=== PATIENT | female | born 1965 | race Caucasian/White ===

== ENCOUNTER 2023-01-23 08:23 | Emergency (ER) | payer BC ==
[~2023-01-23] VITALS: Ht 175 cm; Wt 84.0 kg
--- NOTE | 2023-01-23 08:44 | ED Abdominal Pain ---
General Chief Complaint: Abdominal/GI Problems Stated Complaint: ABD PAIN Source of Information: Patient Exam Limitations: No Limitations History of Present Illness Date Seen by Provider: Jan 23, 2023 Time Seen by Provider: 08:30 Initial Comments Patient is a 57-year-old female who presents to the emergency department with a chief complaint of periumbilical pain. She states that she saw Dr. Hi on Friday of this week, 4 days ago. Her hernia was "out" and he pushed it back in. She states ever since he did that she has had pain. She had 1 episode of nausea and vomiting this morning. Last time she has had anything to eat was yesterday afternoon. She was trying to drink coffee this morning but her abdomen hurt too bad. She states she also has a hernia in her right upper quadrant that they are monitoring. No abnormal bowel movements/diarrhea/black or bloody stools. She rates her pain at a "8" currently. She endorses decreased urinary frequency and decreased amounts of urination. She is a smoker. Her blood pressure is quite high diastolic 117. She is not on medications for blood pressure. Movement makes the pain worse as well as palpation. Timing/Duration: 3-4 Days Severity/Quality: Moderate ("8") Location: RUQ, Periumbilical Radiation: No Radiation Activities at Onset: None Modifying Factors: Worsens With Movement Associated Symptoms: Nausea/Vomiting (x1 this morning) Allergies and Home Medications Allergies Coded Allergies: Sulfa (Sulfonamide Antibiotics) (Verified Allergy, Unknown, 01/23/23) terbinafine (Verified Allergy, Unknown, 01/23/23) Patient Home Medication List Home Medication List Reviewed: Yes Review of Systems Review of Systems Constitutional: see HPI Respiratory: No Symptoms Reported Cardiovascular: No Symptoms Reported Gastrointestinal: Abdominal Pain, Nausea, Vomiting Genitourinary: Other (decreased amounts. has urge but isn't going as much) Musculoskeletal: no symptoms reported Skin: no symptoms reported All Other Systems Reviewed Negative Unless Noted: Yes Past Igbokrm-Eohfzb-Ldvrab Hx Patient Social History Tobacco Use?: Yes Tobacco type used: Cigarettes Smoking Status: Current Everyday Smoker Physical Exam Vital Signs Vital Signs - First Documented 01/23/23 08:31 Temp 36.2 Pulse 84 B/P (MAP) 157/114 (128) Pulse Ox 99 O2 Delivery Room Air Capillary Refill : Height/Weight/BMI Height: '" Weight: lbs. oz. kg; BMI Method: General Appearance: WD/WN, no apparent distress HEENT: PERRL/EOMI Respiratory: lungs clear, normal breath sounds, no respiratory distress, no accessory muscle use Cardiovascular: regular rate, rhythm Gastrointestinal: soft, other (umbilical hernia, soft. + BS; Not distended) Extremities: normal range of motion, non-tender, normal inspection, no pedal edema, normal capillary refill Skin: normal color, warm/dry Progress/Results/Core Measures Results/Orders Lab Results Laboratory Tests Test 01/23/23 08:35 Range/Units White Blood Count 10.9 4.3-11.0 10^3/uL Red Blood Count 4.44 3.80-5.11 10^6/uL Hemoglobin 15.1 11.5-16.0 g/dL Hematocrit 45 35-52 % Mean Corpuscular Volume 100 H 80-99 fL Mean Corpuscular Hemoglobin 34 25-34 pg Mean Corpuscular Hemoglobin Concent 34 32-36 g/dL Red Cell Distribution Width 11.9 10.0-14.5 % Platelet Count 253 130-400 10^3/uL Mean Platelet Volume 9.7 9.0-12.2 fL Immature Granulocyte % (Auto) 0 % Neutrophils (%) (Auto) 74 42-75 % Lymphocytes (%) (Auto) 20 12-44 % Monocytes (%) (Auto) 4 0-12 % Eosinophils (%) (Auto) 1 0-10 % Basophils (%) (Auto) 1 0-10 % Neutrophils # (Auto) 8.0 H 1.8-7.8 10^3/uL Lymphocytes # (Auto) 2.2 1.0-4.0 10^3/uL Monocytes # (Auto) 0.5 0.0-1.0 10^3/uL Eosinophils # (Auto) 0.1 0.0-0.3 10^3/uL Basophils # (Auto) 0.1 0.0-0.1 10^3/uL Immature Granulocyte # (Auto) 0.0 0.0-0.1 10^3/uL Sodium Level 141 135-145 MMOL/L Potassium Level 4.3 3.6-5.0 MMOL/L Chloride Level 106 98-107 MMOL/L Carbon Dioxide Level 21 21-32 MMOL/L Anion Gap 14 5-14 MMOL/L Blood Urea Nitrogen 9 7-18 MG/DL Creatinine 0.71 0.60-1.30 MG/DL Estimat Glomerular Filtration Rate 100 BUN/Creatinine Ratio 13 Glucose Level 97 70-105 MG/DL Calcium Level 9.1 8.5-10.1 MG/DL Corrected Calcium 8.8 8.5-10.1 MG/DL Total Bilirubin 0.4 0.1-1.0 MG/DL Aspartate Amino Transf (AST/SGOT) 17 5-34 U/L Alanine Aminotransferase (ALT/SGPT) 16 0-55 U/L Alkaline Phosphatase 45 40-136 U/L C-Reactive Protein High Sensitivity 0.23 0.00-0.50 MG/DL Total Protein 7.3 6.4-8.2 GM/DL Albumin 4.4 3.2-4.5 GM/DL My Orders Orders - JASEN CAMARENA MD Ed Iv/Invasive Line Start (01/23/23 08:49) Cbc With Automated Diff (01/23/23 08:49) Comprehensive Metabolic Panel (01/23/23 08:49) Hs C Reactive Protein (01/23/23 08:49) Fentanyl Inj (Sublimaze Injection) (01/23/23 09:00) Ketorolac Injection (Toradol Injection) (01/23/23 09:30) Medications Given in ED Current Medications Medications Dose Ordered Sig/Ashley Route Start Time Stop Time Status Last Admin Dose Admin Fentanyl Citrate 25 mcg ONCE ONCE IVP 01/23/23 09:00 01/23/23 09:01 DC 01/23/23 09:32 25 MCG Ketorolac Tromethamine 15 mg ONCE ONCE IVP 01/23/23 09:30 01/23/23 09:31 DC 01/23/23 09:32 15 MG Vital Signs/I&O 01/23/23 08:31 Temp 36.2 Pulse 84 B/P (MAP) 157/114 (128) Pulse Ox 99 O2 Delivery Room Air Progress Progress Note : Time: 09:38 Progress Note Patient seen and evaluated by me. Evaluation today includes physical exam, CBC, Chem-12, CRP. Pertinent physical exam findings well-developed well-nourished female in no acute distress. Abdominal exam reveals normal bowel sounds, soft abdomen, no involuntary guarding or rebound tenderness. Not distended. Umbilical hernia site is soft without any signs of incarceration or strangulation. Differential diagnosis based on history and physical, umbilical hernia with inflammatory change, enteritis, partial small bowel obstruction. Labs reviewed and interpreted by me. CBC is normal, Chem-12 is normal, CRP is normal. Patient clinically does not have evidence for strangulation or incarceration of her hernia. She has not vomited in the department and only vomited once this morning. She has clear follow-up with Dr. Hi. No real indications that she is developing a bowel obstruction. She does not have a fever. Labs are all normal which supports decision to send her home. I have given her both written and verbal return precautions. She verbalized understanding. All questions are sought and answered. Patient is stable for discharge. Departure Impression Primary Impression: Abdominal pain Qualified Codes: R10.9 - Unspecified abdominal pain Disposition: 01 HOME, SELF-CARE Condition: Improved Departure-Patient Inst. Decision time for Depature: 09:37 Referrals: DONNY HI,LOCAL PHYSICIAN (PCP) Primary Care Physician Patient Instructions: Umbilical Hernia, Adult Add. Discharge Instructions: Monitor the hernia for signs of getting stuck such as increased pain, vomiting, redness. You can take [id number] ibuprofen or Tylenol as needed for pain. Please keep your follow-up appointment with Dr. Hi in 2 weeks. Return to the emergency department for any new, concerning or emergent complaints. Copy Copies To 1: DONNY HI KATHRYN M MD Jan 23, 2023 08:44
[2023-01-23 08:59] LABS: ALBUMIN 4.4 GM/DL (3.2-4.5); POTASSIUM 4.3 MMOL/L (3.6-5.0)
[2023-01-23] MEDS ORDERED: fentaNYL INJ 100 MCG/2 ML AMP IVP ONE (09:00)
[2023-01-23 09:01] LABS: CALCIUM 9.1 MG/DL (8.5-10.1)
[2023-01-23 09:02] LABS: BASOPHILS # (AUTO) 0.1 10^3/uL (0.0-0.1); BASOPHILS % (AUTO) 1 % (0-10); EOSINOPHILS # (AUTO) 0.1 10^3/uL (0.0-0.3); EOSINOPHILS % (AUTO) 1 % (0-10); HEMATOCRIT 45 % (35-52); HEMOGLOBIN 15.1 g/dL (11.5-16.0); LYMPHOCYTES # (AUTO) 2.2 10^3/uL (1.0-4.0); LYMPHOCYTES % (AUTO) 20 % (12-44); MEAN CORPUSCULAR HEMOGLOBIN 34 pg (25-34); MEAN CORPUSCULAR HGB CONC 34 g/dL (32-36); MEAN CORPUSCULAR VOLUME 100 fL (80-99); MEAN PLATELET VOLUME 9.7 fL (9.0-12.2); MONOCYTES # (AUTO) 0.5 10^3/uL (0.0-1.0); MONOCYTES % (AUTO) 4 % (0-12); NEUTROPHILS % (AUTO) 74 % (42-75); PLATELET COUNT 253 10^3/uL (130-400); TOTAL PROTEIN 7.3 GM/DL (6.4-8.2); WHITE BLOOD COUNT 10.9 10^3/uL (4.3-11.0)
[2023-01-23 09:04] LABS: BILIRUBIN,TOTAL 0.4 MG/DL (0.1-1.0)
[2023-01-23 09:06] LABS: CREATININE SERUM 0.71 MG/DL (0.60-1.30)
[2023-01-23] MEDS ORDERED: KETOROLAC 15 MG/ML VIAL IVP ONE (09:30)
[2023-01-23 09:44] VITALS: BP 129/66
== END 2023-01-23 10:22 | disposition home or self-care (01) ==
LOC: EDUNIT# 08:23 → ER 08:26
DX: K42.9 Umbilical hernia without obstruction or gangrene (principal); F17.210 Nicotine dependence, cigarettes, uncomplicated
CPT/HCPCS: 36415; 80053; 85025; 86141

== ENCOUNTER 2023-01-30 05:31 | Outpatient (CLI) | payer BC ==
[~2023-01-30] VITALS: Ht 175.3 cm; Wt 85.3 kg
[2023-01-30] MEDS ORDERED: ONDA4TAB11 SL (14:04)
[2023-01-30] MEDS ORDERED: RALO60TA12 PO (14:04)
[2023-01-30] MEDS ORDERED: NF-PREM2.5 PO (14:04)
[2023-01-30] MEDS ORDERED: TUME1CAP PO (14:04)
[2023-01-30] MEDS ORDERED: PANT40TA52 PO (14:04)
== END 2023-01-30 14:41 | disposition home or self-care (01) ==
LOC: PREOP 05:31
PROVIDERS: ATTEND Surgery
DX: Z01.818 Encounter for other preprocedural examination (principal)

== ENCOUNTER 2023-02-06 10:27 | Day surgery (SDC) | payer BC ==
[~2023-02-06] VITALS: Ht 175.3 cm; Wt 85.3 kg
[2023-02-06] VITALS (15 sets, daily range): BP systolic 107–139; BP diastolic 60–82
[~2023-02-06 10:27] MED LIST: NF-PREM2.5 PO; ONDA4TAB11 SL; PANT40TA52 PO; RALO60TA12 PO; TUME1CAP PO
[2023-02-06] MEDS ORDERED: ceFAZolin INJECTION 2,000 MG in NS (IVPB) 50 ML IV ONE ×2 (10:45→11:15)
[2023-02-06] MEDS: LACTATED RINGERS 1,000 ML IV PRN ×2 (11:30→13:15)
[2023-02-06] MEDS ORDERED: MIDAZOLAM 2 MG/2 ML (VERSED) VIAL ONE (11:41)
[2023-02-06] MEDS ORDERED: fentaNYL INJ 100 MCG/2 ML AMP ONE (11:41)
[2023-02-06] MEDS ORDERED: LIDOCAINE PF 2% 5 ML (XYLOCAINE) VIAL ONE (11:41)
[2023-02-06] MEDS ORDERED: ROCURONIUM 50 MG/5 ML (ZEMURON) VIAL IV ONE (11:41)
[2023-02-06] MEDS ORDERED: proPOfol 200 MG/20 ML (DIPRIVAN) VIAL IV ONE (11:41)
--- NOTE | 2023-02-06 11:50 | Progress Note-Pre Operative ---
Pre-Operative Progress Note Date H&P Reviewed: Feb 06, 2023 Time H&P Reviewed: 11:50 History & Physical: H&P Reviewed, Patient Examed, No changes noted Pre-Operative Diagnosis: incisional hernia DONNY BRITO DO Feb 06, 2023 11:50
[2023-02-06] MEDS ORDERED: BUP/EPI 0.5% 1:200,000 (SENSORCAINE) 30 ML VIAL ONE (12:12)
[2023-02-06] MEDS ORDERED: SEVOFLURANE (ULTANE) 15 ML INHAL SOLN ONE (13:54)
[2023-02-06] MEDS ORDERED: KETOROLAC 30 MG/ML VIAL ONE (13:55)
[2023-02-06] MEDS ORDERED: NEOSTIGMINE (BLOXIVERZ ) 1 MG/1ML 10 ML VIAL ONE (13:58)
[2023-02-06] MEDS ORDERED: GLYCOPYRROLATE 0.2 MG/ML (ROBINUL) 2 ML VIAL ONE (13:58)
[2023-02-06] MEDS ORDERED: DOCU-143 PO (14:00)
[2023-02-06] MEDS ORDERED: ACHD5005 PO (14:00)
[2023-02-06] MEDS ORDERED: morphine INJ 10 MG/ML 1ML (SYR OR VIAL) ONE (14:00)
--- NOTE | 2023-02-06 14:02 | Discharge Inst-Simple/Standard ---
Discharge Inst-Standard Discharge Medications New, Converted or Re-Newed RX: Transmitted to Pharmacy Patient Instructions/Follow Up Plan of Care/Instructions/FU: 2 weeks Sussy Activity as Tolerated: No Discharge Diet: Regular Diet Other Inst to Patient Follow up Appt: Make appointment for 2 week. Instructions: No lifting greater than 10 pounds. No strenuous activity. May shower in 24 hours, no tub bath or soaking. Use incentive spirometer at home as directed. No Smoking Skin/Wound Care: You have special glue over your incision that will fall off on it's own. Remove the umbilical ball/bandage in 48 hours. Leave the glue in the umbilicus. Symptoms to Report: Appetite Changes, Extremity Discoloration, Numbness/Tingling, Swelling Increased, Bleeding Excessive, Eyesight Changes, Pain Increased, Urine Color Change, Constipation(Persistent), Fever over 101 degree F, Pain/Pressure in chest, Urinating Difficulty, Cough Up/Vomit Blood, Heart Beat Irreg/Pounding, Pain/Pressure in jaw, Vaginal Bleeding Increase, Cramps in feet or legs, Lightheadedness, Pain/Pressure in shoulder, Diarrhea(Persistent), Memory Changes Suddenly, Questions/Concerns, Weight gain consecutive days, Dizziness/Fainting, Nausea/Vomiting, Shortness of Breath, Weight gain over 2 pounds If questions or concerns contact your physician Or seek help at emergency department. DONNY BRITO DO Feb 06, 2023 14:02
--- NOTE | 2023-02-06 14:04 | Progress Note-Post Operative ---
Post-Operative Progess Note Surgeon (s)/Salvager (s) Surgeon DONNY BRITO DO Salvager: Dr. Hendricks to assist in retraction dissection and closure. Pre-Operative Diagnosis incisional hernia Post-Operative Diagnosis incarcerated incisional and umbilical hernia (3 defects). Procedure & Operative Findings Date of Procedure 02/06/23 Procedure Performed/Findings robotic incarcerated incisional hernia repair greater than 3 cm and less than 10 cm using 4x6 inch ventralight echo mesh. Anesthesia Type general Estimated Blood Loss Estimated blood loss (mL): minimal Specimens/Packing Specimens Removed na DONNY BRITO DO Feb 06, 2023 14:04
[2023-02-06] MEDS ORDERED: ONDANSETRON 4 MG/2 ML (SDV) Z0FRAN IVP PRN (14:15)
[2023-02-06] MEDS ORDERED: HYDROmorphone 2 MG/ML VIAL (DILAUDID) IV ONE (14:15)
[2023-02-06] MEDS ORDERED: morphine INJ 10 MG/ML 1ML (SYR OR VIAL) IVP ONE (14:15)
--- NOTE | 2023-02-06 14:15 | Anesthesia-General Post-Op ---
General Patient Condition Mental Status/LOC: Same as Preop Cardiovascular: Satisfactory Nausea/Vomiting: Absent Respiratory: Satisfactory Pain: Controlled Complications: Absent Post Op Complications Complications None Follow Up Care/Instructions Patient Instructions None needed. Anesthesia/Patient Condition Patient Condition Patient is doing well, no complaints, stable vital signs, no apparent adverse anesthesia problems. No complications reported per nursing. JARRETT LEIJA CRNA Feb 06, 2023 14:15
[2023-02-06] MEDS ORDERED: ONDANSETRON 4 MG/2 ML (SDV) Z0FRAN ONE (15:15)
[2023-02-06] MEDS ORDERED: ONDANSETRON 4 MG/2 ML (SDV) Z0FRAN IVP ONE (15:30)
--- NOTE | 2023-02-07 17:17 | OPERATIVE REPORT ---
DATE OF SERVICE: 02/06/2023 PREOPERATIVE DIAGNOSIS: Incisional hernia. POSTOPERATIVE DIAGNOSIS: Incarcerated incisional and umbilical hernia with 3 defects. PROCEDURE: Robotic incarcerated incisional hernia repair with greater than 3 cm and less than 10 cm using 4 x 6 inch Ventralight Echo mesh. SURGEON: Shmuel Hi DO AMMUNITION OFFICER: Yaron Hendricks DO, assisted in retraction, dissection, and closure. ANESTHESIA: General. ESTIMATED BLOOD LOSS: Minimal. COMPLICATIONS: None. INDICATIONS: The patient is a 57-year-old female with an incisional hernia, which causes significant discomfort. She wished to have it repaired. She understands risks and benefits of procedure and wished to proceed. Consent was signed in chart. DESCRIPTION OF PROCEDURE: The patient was taken to the operating suite. She was prepped and draped in sterile fashion. Timeout was performed. Local anesthetic was infiltrated in the left upper quadrant. Skin incision was made. Cautery used to dissect down to the fascia, which was then scored. The muscle was divided and the posterior fascia was divided and the abdomen was then entered. A gallardo trocar was inserted. Pneumoperitoneum was achieved. A two 8 mm trocars were placed in the left side of the abdomen for ports of the robot. This was all done under visualization. A midline incisional hernia present, falciform protruding up through it. The robot was then docked. Using cauterized scissors, the falciform and hernia contents were then dissected free. Significant amount of fat up through the incisional hernia was incarcerated up there, which continued to be dissected free and removed. The falciform was then divided superiorly. Fat pad was then taken down inferiorly noting 3 defects with overall dimensions approximately 4 cm in length. Once the area was performed. A Stratafix suture was then used to close the defect and slight diastasis. It was ran from the cephalad to caudad fashion of the defect and then brought back up to the cephalad again. Once closed, the suture was cut and then removed. An echo 4 x 6 inch mesh was then inserted and grasped through a stab incision above the umbilicus. Secure strap tacker was used to secure it circumferentially. Also put a 5 mm trocar in the right side of the abdomen for further tacking. An outer crown was created. The balloon was removed. An inner crown was created. The abdomen was then desufflated. The trocars were removed. The fascial defect at the 12 mm trocar in the left upper quadrant was then closed with 0 Vicryl in a [id number] fashion. The area was then washed and dried and skin Affix was placed over the incisions. Prior to skin affix incsions closed with 4-0 Monocryl. A tonsil ball was placed in the umbilicus and a pressure dressing was placed in it. The patient tolerated the procedure well without complications. She was taken to recovery room in stable condition. Job ID: [id number] DocumentID: [id number] Dictated Date: 02/07/2023 10:24:13 Project Manager/Team Coach Date: 02/07/2023 17:16:00 Dictated By: DO SAJI CRABTREE
== END 2023-02-06 17:30 | disposition home or self-care (01) ==
LOC: SDC 10:27
PROVIDERS: ATTEND Surgery
DX: K43.0 Incisional hernia with obstruction, without gangrene (principal); K42.9 Umbilical hernia without obstruction or gangrene; F17.210 Nicotine dependence, cigarettes, uncomplicated; Z79.899 Other long term (current) drug therapy; Z87.11 Personal history of peptic ulcer disease
CPT/HCPCS: 49594; 84703; 87081; C1781

== ENCOUNTER 2023-02-23 09:20 | Emergency (ER) | payer BC ==
[~2023-02-23] VITALS: Ht 175.2 cm; Wt 81.6 kg
[~2023-02-23 09:20] MED LIST changes: +ACHD5005 PO; +DOCU-143 PO
[2023-02-23] MEDS ORDERED: diphenhydrAMINE 50 MG/ML INJ (BENADRYL) IV STA (09:52)
[2023-02-23 09:59] LABS: BASOPHILS % (AUTO) 0 % (0-10); EOSINOPHILS # (AUTO) 0.1 10^3/uL (0.0-0.3); EOSINOPHILS % (AUTO) 1 % (0-10); HEMATOCRIT 44 % (35-52); HEMOGLOBIN 14.8 g/dL (11.5-16.0); LYMPHOCYTES # (AUTO) 1.9 10^3/uL (1.0-4.0); LYMPHOCYTES % (AUTO) 15 % (12-44); MEAN CORPUSCULAR HEMOGLOBIN 34 pg (25-34); MEAN CORPUSCULAR HGB CONC 34 g/dL (32-36); MEAN CORPUSCULAR VOLUME 101 fL (80-99); MEAN PLATELET VOLUME 9.7 fL (9.0-12.2); MONOCYTES # (AUTO) 0.5 10^3/uL (0.0-1.0); MONOCYTES % (AUTO) 4 % (0-12); NEUTROPHILS % (AUTO) 80 % (42-75); PLATELET COUNT 289 10^3/uL (130-400); WHITE BLOOD COUNT 12.6 10^3/uL (4.3-11.0)
[2023-02-23 10:02] LABS: ALBUMIN 4.4 GM/DL (3.2-4.5)
[2023-02-23 10:04] LABS: CALCIUM 9.3 MG/DL (8.5-10.1)
[2023-02-23 10:05] LABS: TOTAL PROTEIN 7.3 GM/DL (6.4-8.2)
[2023-02-23 10:07] LABS: BILIRUBIN,TOTAL 0.3 MG/DL (0.1-1.0)
[2023-02-23 10:09] LABS: CREATININE SERUM 0.76 MG/DL (0.60-1.30)
[2023-02-23] MEDS ORDERED: FAMOTIDINE 20 MG (PEPCID) TABLET PO STA (10:45)
[2023-02-23] MEDS ORDERED: ALPRAZolam 0.5 MG (XANAX) TAB PO STA (11:53)
[2023-02-23] MEDS ORDERED: HYDR25CA PO (11:59)
--- NOTE | 2023-02-23 12:00 | ED Integumentary General ---
General Chief Complaint: Allergic Reaction Stated Complaint: POSS ALLERGIC REACTION/ITCHING Nursing Triage Note: AMB TO ROOM 10 WITH C/O RED RASH, HIVES ALL OVER BODY Source: patient Exam Limitations: no limitations History of Present Illness Date Seen by Provider: February 23, 2023 Time Seen by Provider: 09:45 Initial Comments Here with report of itching and rash over her body especially her back and extremities but also includes hands and feet. She believes that she might be allergic to mesh used for hernia repair surgery done within the last [address] Hi. She was seen by him last week and prescribed Medrol Dosepak. She is taking that as well as Benadryl for itching and things are not better and in fact she believes she is worse especially to her upper legs. She reports that she is scratching at nighttime and things are not getting better. She denies taking hot or long showers or exposure to other allergens that would typically cause her skin to itch. Denies breathing problems or vomiting. Timing/Duration: week, getting worse Severity: moderate Location: scalp, torso, hands, feet, extremities Possible Cause: no cause identified Associated Symptoms: No fever; hives, rash; No sore throat Allergies and Home Medications Allergies Coded Allergies: Sulfa (Sulfonamide Antibiotics) (Verified Allergy, Unknown, 01/30/23) terbinafine (Verified Allergy, Unknown, 01/30/23) Patient Home Medication List Home Medication List Reviewed: Yes Docusate Sodium (Colace) 100 Mg Capsule, 100 MG PO BID Prescribed by: DONNY HI on 02/06/23 1400 Estrog Conj/Medryoxyprog Acet (Prempro 0.625-2.5 mg Tablet) 0.625 Mg-2.5 Mg Tab, 1 TAB PO DAILY, (Reported) Entered as Reported by: Rosy Tapia on 01/30/23 1404 Hydrocodone/Acetaminophen (Hydrocodone-Acetamin 5-325 mg) 5 Mg-325 Mg Tablet, 1 EACH PO Q4H PRN for PAIN-MODERATE (5-7) Prescribed by: DONNY HI on 02/06/23 1401 Hydroxyzine Pamoate (Vistaril) 25 Mg Capsule, 25 MG PO Q6H PRN for ITCHING AND RASH Prescribed by: LILIANA RING on 02/23/23 1159 Ondansetron (Ondansetron Odt) 4 Mg Tab.rapdis, 4 MG SL Q4H PRN for NAUSEA/VOMITING, (Reported) Entered as Reported by: Rosy Tapia on 01/30/231403 Pantoprazole Sodium (Pantoprazole Sodium) 40 Mg Tablet.dr, 40 MG PO DAILY, (Reported) Entered as Reported by: Rosy Tapia on 01/30/231403 Raloxifene HCl (Raloxifene HCl) 60 Mg Tablet, 60 MG PO DAILY, (Reported) Entered as Reported by: oRsy Tapia on 01/30/231403 Tumeric/Ging/[place]/Oreg/Capryl (Candicidal Capsule) 100-150 Mg Capsule, 1 EACH PO DAILY, (Reported) Entered as Reported by: Rosy Tapia on 01/30/231403 Review of Systems Review of Systems Constitutional: see HPI; No chills, No fever EENTM: no symptoms reported Respiratory: No cough, No short of breath Cardiovascular: No chest pain, No edema Gastrointestinal: No nausea, No vomiting Skin: see HPI, change in color, lesions, pruritus, rash Psychiatric/Neurological: Anxiety Past Swldhji-Iddlok-Loqhsm Hx Patient Social History Tobacco Use?: Yes Tobacco type used: Cigarettes Smoking Status: Current Everyday Smoker Use of E-Cig and/or Vaping dev: No Substance use?: No Alcohol Use?: No Pt feels they are or have been: No Immunizations Up To Date Tetanus Booster (TDap): More than 5yrs First/Initial COVID19 Vaccinat: 01/08/21 Second COVID19 Vaccination Farshad: 01/30/21 Third COVID19 Vaccination Date: 01/08/21 Seasonal Allergies Seasonal Allergies: Yes Past Medical History Surgery/Hospitalization HX: BREAST AUGMENTATION, ARISTIDES, RT HAND FX WITH SCREWS, LAP. ABDOMINAL HERNIA REAPIR PMH-GERD, MENOPAUSAL Surgeries: Yes (UTERINE ABLATION) Breast, Gallbladder, Orthopedic Respiratory: Yes Pneumonia, Chronic Bronchitis Cardiac: No Neurological: Yes Vertigo Genitourinary: Yes Kidney Infection, UTI-Chronic Gastrointestinal: Yes Gastroesophageal Reflux, Gastrointestinal Bleed, Ulcer, Gall Bladder Disease Musculoskeletal: Yes (LEFT HIP, BOTH FEET, FEMUR, RIGHT HAND) Arthritis, Chronic Back Pain, Fractures Endocrine: No HEENT: Yes Tinnitis Loss of Vision: Denies Hearing Impairment: Bilateral Hearing Aide Cancer: No Psychosocial: Yes PTSD, Depression Integumentary: No Blood Disorders: No Adverse Reaction/Blood Tranf: No Family Medical History Reviewed Nursing Family Hx Physical Exam Vital Signs Vital Signs - First Documented 02/23/23 09:25 Temp 36.5 Pulse 101 Resp 20 B/P (MAP) 176/88 (117) Pulse Ox 97 O2 Delivery Room Air Capillary Refill : Less Than 3 Seconds General Appearance: WD/WN, no apparent distress HEENT: PERRL/EOMI, pharynx normal Neck: full range of motion, supple Cardiovascular: no murmur, tachycardia Respiratory: lungs clear, normal breath sounds Gastrointestinal: non tender, soft Extremities: normal range of motion, non-tender Neurologic/Psychiatric: alert, oriented x 3 Skin: warm/dry Skin Problem Location: upper extremities, torso, lower extremities Skin Problem Character: rash, urticarial Progress/Results/Core Measures Results/Orders Lab Results Laboratory Tests Test 02/23/23 09:35 Range/Units White Blood Count 12.6 H 4.3-11.0 10^3/uL Red Blood Count 4.31 3.80-5.11 10^6/uL Hemoglobin 14.8 11.5-16.0 g/dL Hematocrit 44 35-52 % Mean Corpuscular Volume 101 H 80-99 fL Mean Corpuscular Hemoglobin 34 25-34 pg Mean Corpuscular Hemoglobin Concent 34 32-36 g/dL Red Cell Distribution Width 12.1 10.0-14.5 % Platelet Count 289 130-400 10^3/uL Mean Platelet Volume 9.7 9.0-12.2 fL Immature Granulocyte % (Auto) 0 % Neutrophils (%) (Auto) 80 H 42-75 % Lymphocytes (%) (Auto) 15 12-44 % Monocytes (%) (Auto) 4 0-12 % Eosinophils (%) (Auto) 1 0-10 % Basophils (%) (Auto) 0 0-10 % Neutrophils # (Auto) 10.0 H 1.8-7.8 10^3/uL Lymphocytes # (Auto) 1.9 1.0-4.0 10^3/uL Monocytes # (Auto) 0.5 0.0-1.0 10^3/uL Eosinophils # (Auto) 0.1 0.0-0.3 10^3/uL Basophils # (Auto) 0.0 0.0-0.1 10^3/uL Immature Granulocyte # (Auto) 0.1 0.0-0.1 10^3/uL Sodium Level 140 135-145 MMOL/L Potassium Level 4.0 3.6-5.0 MMOL/L Chloride Level 105 98-107 MMOL/L Carbon Dioxide Level 22 21-32 MMOL/L Anion Gap 13 5-14 MMOL/L Blood Urea Nitrogen 10 7-18 MG/DL Creatinine 0.76 0.60-1.30 MG/DL Estimat Glomerular Filtration Rate 92 BUN/Creatinine Ratio 13 Glucose Level 126 H 70-105 MG/DL Calcium Level 9.3 8.5-10.1 MG/DL Corrected Calcium 9.0 8.5-10.1 MG/DL Total Bilirubin 0.3 0.1-1.0 MG/DL Aspartate Amino Transf (AST/SGOT) 13 5-34 U/L Alanine Aminotransferase (ALT/SGPT) 13 0-55 U/L Alkaline Phosphatase 47 40-136 U/L Total Protein 7.3 6.4-8.2 GM/DL Albumin 4.4 3.2-4.5 GM/DL My Orders Orders - LILIANA RING MD Cbc With Automated Diff (02/23/23 09:52) Comprehensive Metabolic Panel (02/23/23 09:52) Ed Iv/Invasive Line Start (02/23/23 09:52) Diphenhydramine Injection (Benadryl Inje (02/23/23 09:52) Dexamethasone Injection (Decadron Inje (02/23/23 10:00) Famotidine Tablet (Pepcid Tablet) (02/23/23 10:45) Alprazolam Tablet (Xanax Tablet) (02/23/23 11:53) Medications Given in ED Current Medications Medications Dose Ordered Sig/Ashley Route Start Time Stop Time Status Last Admin Dose Admin Dexamethasone Sodium Phosphate 10 mg ONCE ONCE IV 02/23/23 10:00 02/23/23 10:01 DC 02/23/23 09:58 10 MG Vital Signs/I&O 02/23/23 09:25 Temp 36.5 Pulse 101 Resp 20 B/P (MAP) 176/88 (117) Pulse Ox 97 O2 Delivery Room Air Blood Pressure Mean: 117 Progress Progress Note : Progress Note Seen and evaluated. IV ordered. We will check CBC and CMP. Benadryl 50 mg IV and Decadron 10 mg IV ordered. I will make contact with Dr. Hi and discussed case since he has seen her. Monitor patient. Differential diagnosis includes urticaria, rash, healing scab, pruritus 1150: Labs reviewed and CBC shows slight elevation of white count but no eosinophilia. Chemistries grossly normal. She is a little better after Benadryl given earlier. Dr. Hi has been in to see the patient. We will initiate Pepcid 20 mg p.o. and continue that outpatient. I did discuss with her OTC treatment including skin healing lotions and we will continue the [id number] Pepcid/famotidine. I have prescribed Vistaril for itching and see if that helps better. We will give Xanax 0.5 mg p.o. now without prescription to see if that helps calm her anxiousness currently until she can get home for the application of the lotions. Discharged home with return precautions. Patient verbalized understanding of instructions and agreement with plan. Departure Impression Primary Impression: Pruritus Additional Impression: Urticaria Disposition: 01 HOME, SELF-CARE Condition: Stable Departure-Patient Inst. Decision time for Depature: 11:57 Referrals: NO,LOCAL PHYSICIAN (PCP/Family) Primary Care Physician Patient Instructions: Tangela (DC), Itchy Skin Add. Discharge Instructions: All discharge instructions reviewed with patient and/or family. Voiced understanding. Use moisturizing lotions that are nonscented such as Eucerin, Clare ultra skin care or similar. Continue prescribed medicines as previously ordered. You are being prescribed Vistaril for itching. You may take this instead of Benadryl but do not take both at the same time as they are similar class. If the Vistaril does not help with the itching, you may return to Benadryl or the generic diphenhydramine. You should initiate lytv-bvv-nplmoep Pepcid or the generic famotidine 20 mg daily for the next 5 to 7 days and then as needed for itching. Follow-up with Dr. Hi for recheck and further evaluation. [facility] and you should probably establish care with web support engineer due to your allergies and skin conditions. Scripts Hydroxyzine Pamoate (Vistaril) 25 Mg Capsule 25 MG PO Q6H PRN for ITCHING AND RASH, #30 CAP 0 Refills Prov: LILIANA RING MD 02/23/23 LILIANA RING MD February 23, 2023 12:00
[2023-02-23 12:05] VITALS: BP 148/85
== END 2023-02-23 12:05 | disposition home or self-care (01) ==
LOC: EDUNIT# 09:20 → ER 09:22
DX: L29.9 Pruritus, unspecified (principal); L50.9 Urticaria, unspecified; F17.210 Nicotine dependence, cigarettes, uncomplicated
CPT/HCPCS: 36415; 80053; 85025